=== PATIENT | male | born 1965 | race African-American/Black ===

== ENCOUNTER 2020-04-05 14:49 | Emergency (ER) | payer MEDICAID ==
[~2020-04-05] VITALS: Ht 170.2 cm; Wt 68.0 kg
--- NOTE | 2020-04-05 14:50 | Emergency Room Report ---
History of Present Illness Present Illness HPI Patient is a 54-year-old male who presented via ambulance with a recent fall. Patient had hit the left side of his head. Patient does not recall the name of his medications. Patient was noted to be somewhat intoxicated by paramedics. Was brought in for further evaluation and treatment. Apparently bystanders did not witness any loss of consciousness. Reports having some prior history of hypertension. History is limited by patient's mental status. Allergies: Coded Allergies: No Known Allergies (Unverified , 04/05/20) Patient History Past Medical History: see triage record Reviewed Nursing Documentation: PMH: Agreed; PSxH: Agreed Review of Systems All Other Systems: limited Physical Exam Sp02 EP Interpretation: reviewed, normal General Appearance: normal inspection, no apparent distress, alert, other - Slurred speech Head: other - Approximately 6 cm to centimeter left occipitoparietal hematoma with no laceration ENT: normal ENT inspection, hearing grossly normal, normal voice Neck: normal inspection, full range of motion, supple, no bony tend Respiratory: normal inspection, lungs clear, normal breath sounds, no respiratory distress, no retraction, no wheezing Cardiovascular #1: regular rate, rhythm, no edema Gastrointestinal: normal inspection, normal bowel sounds, non tender, soft, no guarding, no hernia Genitourinary: no CVA tenderness Musculoskeletal: normal inspection, back normal, normal range of motion Neurologic: alert, responsive, normal inspection, other - Speech slurred. Psychiatric: normal inspection, judgement/insight normal, mood/affect normal Skin: other - Hematoma to the left side of the scalp. Medical Decision Making Diagnostic Impression: Primary Impression: Acute head injury Additional Impression: Scalp contusion ER Course Patient presented after a fall. Differential diagnosis include was not limited to CVA, head contusion, intracranial hemorrhage, skull fracture among others. Because of complexity of patient's case laboratory tests and imaging studies were ordered. Patient had prior history of anticoagulant use as well as significant hematoma to the left side of the head. He has mental status appears to be mostly intact other than slurred speech which may be related to recent alcohol intake. Imaging was ordered due to the patient's recent head injury. He appears to be moving all extremities and has otherwise nonfocal exam.Patient had improvement in his time of discharge patient was awake alert and oriented x3 and able to ambulate without assistance. He is advised to return if any worsening of condition or other concerns. Status: improved Disposition: HOME, SELF-CARE Condition: Stable Scripts Acetaminophen* (ACETAMINOPHEN EXTRA STRENGTH*) 500 Mg Tablet 500 MG ORAL Q8H PRN for Fever/Headache/Mild Pain, #30 TAB Prov: Linden Natarajan MD 04/05/20 Linden Natarajan MD Apr 05, 2020 14:50
[2020-04-05 14:55] VITALS: BP 134/90
--- NOTE | 2020-04-05 15:05 | NUR ---
ED Nurse Note: Patient brought into ED from home by ambulance RA [id number] due to ground level fall, patient sustains head injury on the left side of his head. Patient reports to ER MD, he is taking Apixaban, patient admits to ETOH use. Patient prsented with strong smell of alkohol, AAO x2, VSS at this time, skn i dry, warm to touch, pt came wth IV access 20 ga on his left forarm.
[2020-04-05] MEDS ORDERED: LORazepam Inj 2mg/ml 1ml ONE (15:10)
--- NOTE | 2020-04-05 15:45 | Diagnostic Imaging Report ---
Indication: Altered mental status Technique: Continuous helical CT scanning of the head was performed utilizing automated exposure control without intravenous contrast material. Axial and coronal reconstructions were obtained. Comparison: None CT dose: Total DLP 1072.2 mGycm; CTDI vol 53.4 mGy Findings: There is left posterior parietal soft tissue swelling/small scalp hematoma. There is no acute skull fracture. There is no acute intracranial hemorrhage, mass effect or cortical edema. The ventricles, cisterns and sulci are prominent consistent with atrophy. Mild periventrical hypoattenuation is seen, a nonspecific finding. Visualized mastoid air cells and paranasal sinuses are unremarkable. IMPRESSION: Mild left posterior parietal soft tissue swelling/scalp hematoma. No acute skull fracture. No evidence of acute intracranial hemorrhage, mass effect or cortical edema. Mild atrophy and nonspecific periventricular hypoattenuation suggestive of chronic ischemic microvascular changes. The CT scanner at [facility] is accredited by the [employer] and the scans are performed using protocols designed to limit radiation exposure to as low as reasonably achievable to attain images of sufficient resolution adequate for diagnostic evaluation.
[2020-04-05 15:58] LABS: ANION GAP 12 mmol/L (5-15); BLOOD UREA NITROGEN 9 mg/dL (7-18); CALCIUM 8.1 MG/DL (8.5-10.1); CARBON DIOXIDE 25 MMOL/L (21-32); CHLORIDE 99 MMOL/L (98-107); CREATININE 1.2 MG/DL (0.55-1.30); POTASSIUM 4.4 MMOL/L (3.5-5.1); SODIUM 136 MMOL/L (136-145)
[2020-04-05 16:03] LABS: ALANINE AMINOTRANSFERASE 70 U/L (12-78); ALBUMIN 3.5 G/DL (3.4-5.0); ALBUMIN/GLOBULIN RATIO 0.8 (1.0-2.7); ALKALINE PHOSPHATASE 77 U/L (46-116); ASPARTATE AMINO TRANSFERASE 73 U/L (15-37); BILIRUBIN,TOTAL 0.3 MG/DL (0.2-1.0)
[2020-04-05 16:05] LABS: EOSINOPHILS % (AUTO) 1.7 % (0.0-3.0); HEMATOCRIT 43.9 % (42.0-52.0); HEMOGLOBIN 14.9 G/DL (14.2-18.0); MEAN CORPUSCULAR VOLUME 92 FL (80-99); MONOCYTES % (AUTO) 14.2 % (1.0-10.0); NEUTROPHILS % (AUTO) 29.1 % (45.0-75.0); PLATELET COUNT 170 K/UL (150-450); RED BLOOD COUNT 4.76 M/UL (4.70-6.10); RED CELL DISTRIBUTION WIDTH 14.5 % (11.6-14.8); WHITE BLOOD COUNT 4.9 K/UL (4.8-10.8)
[2020-04-05] MEDS ORDERED: Acetaminophen 500mg (ES) tab ORAL ONE (16:45)
--- NOTE | 2020-04-05 18:51 | NUR ---
ED Nurse Note: Patient is sleepng, VSS at this time, NAD noted.
[2020-04-05] MEDS ORDERED: ACETAMINOPHEN500 M3 ORAL (18:58)
[2020-04-05 19:05] VITALS: BP 134/90
--- NOTE | 2020-04-05 19:05 | NUR ---
ER DISCHARGE NOTE: Patient is cleared to be discharged per ERMD, pt is aox4, on room air, with stable vital signs. pt was given dc and prescription instructions, pt was able to verbalize understanding, pt id band and iv site removed without complications. pt is able to ambulate with steady gait. pt took all belongings.
== END 2020-04-05 19:05 | disposition home or self-care (01) ==
LOC: EDBD 14:49 → EMR 17:43
DX: S00.03XA Contusion of scalp, initial encounter (principal); F10.129 Alcohol abuse with intoxication, unspecified; W01.10XA Fall on same level from slipping, tripping and stumbling with subsequent striking against unspecified object, initial encounter; Y93.9 Activity, unspecified; Y92.9 Unspecified place or not applicable
CPT/HCPCS: 36415; 70450; 80053; 84484; 85025; 85610; 85730; 93005; Z7502; 99284